=== PATIENT | male | born 1960 | race Caucasian/White ===

== ENCOUNTER → 2016-08-19 | Outpatient (CLI) | payer OTHER ==
[2016-08-19 12:08] LABS: CHLORIDE,CL 104 mmol/L (98-110); SODIUM,NA 140 mmol/L (136-146)
== END ==
LOC: MW.CHIM 11:32
PROVIDERS: ATTEND Internal Medicine
DX: E11.9 Type 2 diabetes mellitus without complications (principal)
CPT/HCPCS: 36415; 80053; 80061; 83036; 85025

== ENCOUNTER → 2016-09-02 | Outpatient (CLI) | payer OTHER ==
--- NOTE | 2016-09-02 12:31 | CR ---
EXAMINATION: Cervical spine HISTORY: Cervicalgia COMPARISON: None TECHNIQUE: AP and lateral views FINDINGS: The cervical spinal alignment appears normal. The vertebral body heights and disc spaces a ppear well-maintained. Bone mineralization is normal. Mild facet arthritic changes noted. No acute o sseous abnormality. The prevertebral soft tissues appear normal. IMPRESSION: Mild degenerative changes without acute findings.
== END ==
LOC: MW.CHIM 08:38
PROVIDERS: ATTEND Internal Medicine
DX: M54.2 Cervicalgia (principal); M47.812 Spondylosis without myelopathy or radiculopathy, cervical region
CPT/HCPCS: 72040; 72040-26

== ENCOUNTER 2017-01-11 07:51 | Day surgery (SDC) | payer OTHER ==
[~2017-01-11 07:51] MED LIST: Lactated Ringers 1,000 ML IV SCH; Lidocaine 2% 5 ML SDV ONE; Midazolam 1 MG/ML 2 ML SDV ONE; Ondansetron 4 MG/2 ML SDV ONE; Propofol 200 MG/20 ML SDV ONE; fentaNYL 100 MCG/2 ML SDV ONE
--- NOTE | 2017-01-11 08:13 | PCM.PREANE ---
Preanesthetic Assessment - Anesthesia/Transfusion/Family Hx Anesthesia History: Prior Anesthesia Without Reaction Family History of Anesthesia Reaction: No Transfusion History: No Prior Transfusion(s) - Review of Systems General: No Symptoms Pulmonary: No Symptoms Cardiovascular: No Symptoms Gastrointestinal: No Symptoms Neurological: No Symptoms Other: Reports: None - Physical Assessment NPO Status Date: 01/10/17 O2 Sat by Pulse Oximetry: 97 Respiratory Rate: 16 Vital Signs: Last Vital Signs Temp 36.4 C 01/11/17 08:08 Pulse 49 L 01/11/17 08:08 Resp 16 01/11/17 08:08 BP 151/97 H 01/11/17 08:08 Pulse Ox 97 01/11/17 08:08 Height: 1.98 m Weight: 135.171 kg ASA Class: 2 Mental Status: Alert & Oriented x3 Airway Class: Mallampati = 2 Dentition: Reports: Normal Dentition ROM/Head Extension: Full Lungs: Clear to Auscultation, Normal Respiratory Effort Cardiovascular: Regular Rate, Regular Rhythm - Allergies Allergies/Adverse Reactions: Allergies Allergy/AdvReac Type Severity Reaction Status Date / Time No Known Allergies Allergy Verified 01/06/17 13:58 - Anesthesia Plan Pre-Op Medication Ordered: None (PMH: raúl, gerd, dm2, hld) - Acknowledgements Anesthesia Type Planned: MAC Pt an Appropriate Candidate for the Planned Anesthesia: Yes Alternatives and Risks of Anesthesia Discussed w Pt/Guardian: Yes Pt/Guardian Understands and Agrees with Anesthesia Plan: Yes PreAnesthesia Questionnaire Other HEENT History: wears glasses Cardiovascular History: Reports: High Cholesterol, Hypertension, Other (See Below) Other Cardiovascular History: hx of "palpitations" Respiratory History: Reports: Sleep Apnea Other Respiratory History: uses CPAP Gastrointestinal History: Reports: Colon Polyp, Diverticulosis, GERD, Hemorrhoids, Hiatal Hernia Other Gastrointestinal History: hx of "stomach mass" Musculoskeletal History: Reports: None Endocrine/Metabolic History: Reports: Obesity/BMI 30+ - Past Surgical History Head Surgeries/Procedures: Reports: None Cardiovascular Surgical History: Reports: Other (See Below) Other Cardiovascular Surgeries/Procedures: "numerous" angiograms, all negative GI Surgical History: Reports: Cholecystectomy, Colonoscopy, EGD Musculoskeletal Surgical History: Reports: Other (See Below) Other Musculoskeletal Surgeries/Procedures:: hx of elbow "repair", has 1 screw in right elbow - SUBSTANCE USE Smoking Status *Q: Former Smoker Recreational Drug Use History: No - HOME MEDS Home Medications: Home Meds Aspirin [[place] Aspirin] 81 mg PO DAILY 01/06/17 [History] Canagliflozin [Invokana] 300 mg PO ACBREAKFAST 01/06/17 [History] Esomeprazole Magnesium 40 mg PO DAILY 01/06/17 [History] Lisinopril/Hydrochlorothiazide [Lisinopril-Hctz 20-12.5 mg Tab] 1 tab PO DAILY 01/06/17 [History] Metoprolol Tartrate 100 mg PO BID 01/06/17 [History] NIFEdipine [Procardia Xl] 90 mg PO DAILY 01/06/17 [History] Pravastatin [Pravachol] 20 mg PO DAILY 01/06/17 [History] metFORMIN HCl [Metformin HCl] 3 tab PO QPM 01/06/17 [History] - CURRENT (IN HOUSE) MEDS Current Meds: Current Medications Lactated Ringer's (Ringers, Lactated) 1,000 mls @ 125 mls/hr IV ASDIRECTED ZAN Last Admin: 01/11/17 08:09 Dose: 125 mls/hr Discontinued Medications Fentanyl (Sublimaze) Confirm Administered Dose 100 mcg .ROUTE .STK-MED ONE Stop: 01/11/17 07:41 Lidocaine (Xylocaine-Mpf 2%) Confirm Administered Dose 5 ml .ROUTE .STK-MED ONE Stop: 01/11/17 07:40 Midazolam HCl (Versed 1 Mg/Ml) Confirm Administered Dose 2 mg .ROUTE .STK-MED ONE Stop: 01/11/17 07:41 Ondansetron HCl (Zofran) Confirm Administered Dose 4 mg .ROUTE .STK-MED ONE Stop: 01/11/17 07:40 Propofol (Diprivan 20 Ml) Confirm Administered Dose 400 mg .ROUTE .STK-MED ONE Stop: 01/11/17 07:41
--- NOTE | 2017-01-11 09:10 | PCM.OPNOTE ---
- General Post-Op/Procedure Note Date of Surgery/Procedure: 01/11/17 Operative Procedure(s): egd w bx. and colonoscopy w bx Findings: see dict [id number] Pre Op Diagnosis: gerd and surveillence colonoscopy Post-Op Diagnosis: gastric polyp, colon polyp and diverticulosis Anesthesia Technique: Moderate Sedation Primary Surgeon: Michael Novoa Pathology: egd bx and stomach polyp colon polyp at 55 cm when scope withdrew, cold bx Complications: None Condition: Good
--- NOTE | 2017-01-11 09:18 | PCM.POSTAN ---
POST ANESTHESIA ASSESSMENT - MENTAL STATUS Mental Status: Alert, Oriented - RESPIRATORY Respiratory Status: Respiratory Rate WNL, Airway Patent, O2 Saturation Stable - CARDIOVASCULAR CV Status: Pulse Rate WNL, Blood Pressure Stable - GASTROINTESTINAL GI Status: No Symptoms - POST OP HYDRATION Hydration Status: Adequate & Stable
--- NOTE | 2017-01-11 09:18 | PCM48HPAN ---
Post Anesthesia Note - EVALUATION WITHIN 48HRS OF ANESTHETIC Vital Signs in Normal Range: Yes Patient Participated in Evaluation: Yes Respiratory Function Stable: Yes Airway Patent: Yes Cardiovascular Function Stable: Yes Hydration Status Stable: Yes Pain Control Satisfactory: Yes Nausea and Vomiting Control Satisfactory: Yes Mental Status Recovered: Yes
[2017-01-11 09:30] VITALS: BP 122/81
--- NOTE | 2017-01-11 10:49 | OR ---
SURGEON: Michael Novoa MD DATE OF PROCEDURE: 01/11/2017 PREOPERATIVE DIAGNOSIS: Acid reflux and a history of colon polyp. PROCEDURE PERFORMED: Esophagogastroduodenoscopy with biopsy and colonoscopy with biopsy. EGD FINDINGS: 1. The patient is easily sedated with SLIP FILLER and Diprivan. The patient is soundly snoring. 2. Oropharynx and proximal esophagus are free of disease and no stricture or inflammation. Distal esophagus at GE junction at 40, shows almost no acid reflux. Very mild salmon color change, suggests very mild acid reflux. Stomach rugae is normal in appearance and there is a little bit of bile stained water, and otherwise no blood or food particle. Antrum is a little bit inflamed and there are 2 tiny polyps about a size of 1-2 mm at the antrum right at the entrance of the duodenal polyp. It was biopsied. Duodenum was grossly normal in appearance. No blood, no ulcer, no inflammation. Scope retrieved back to the stomach. Retroflexed look at the fundus of stomach and there is no hiatal hernia. Biopsy done at antrum and body and GE junction at 40, and we already biopsied the polyp and sucked out the air while scope pulling out. PROCEDURE IN DETAIL: The patient was taken to the endoscopy room, and with the SLIP FILLER, Diprivan was administered. A well-lubricated EGD scope was gently inserted through the oropharynx, down the esophagus, passing through the gastroesophageal junction, into the stomach. The mucosa was examined upon the passage. Any etiology will be noted. Once in the stomach, we continued to advance to the distal antrum, passed through the pylorus into the second portion of the duodenum. Again, the mucosa was examined for any abnormality and etiology. The scope was then retrieved back to the stomach and then retroflexed to look at the fundus of the stomach. If a biopsy was indicated, we will biopsy the antrum, body, and gastroesophageal junction. The air will be sucked out while the scope is retrieved to reduce the patient's discomfort. The patient tolerated the procedure well. There were no intraoperative complications. Dr. Novoa was present through the whole procedure. Prior to surgery, a time-out had been called, the patient identified, procedure identified and antibiotic administered. COLONOSCOPY FINDINGS: 1. The patient is easily sedated with SLIP FILLER and Diprivan. The patient is soundly snoring. 2. Bowel prep was average to good with very little liquid stool. No semi- formed stool. 3. The patient's colon was rather straight forward. Cecum indicated by ileocecal fold, one-to-one indentation, and appendiceal orifice. Light immittance is not observed and mucosa examined. Upon scope pulling out, the patient had one tiny polyp around 4-5 mm at the distance of 55 when the scope pulling out. It was removed with cold biopsy forceps. The patient also has moderate to large amount of diverticulosis at the left colon. No signs or symptoms of diverticulitis. There is a lot of diverticula and they are not big, suggest early stage and there is a pretty prominent venous prominence and question about portal hypertension especially in the rectum, and the patient has mild internal hemorrhoids and no external hemorrhoids. The patient would benefit from a repeat colonoscopy in 3 years from now or 5 years from now depends on the polyp pathology and/or clinically indicated otherwise. PROCEDURE IN DETAIL: The patient was taken to the endoscopy room. A time out was called, patient identified, and procedure identified. Diprivan was then administrated. Patient went from awake to sleep, hearing doctor talking or door closing is normal. Perineum inspection and digital examination were then performed. A well- lubricated colonoscope was gently inserted through the rectum, advanced past the rectosigmoid junction, the descending colon, splenic flexure, transverse colon, hepatic flexure, ascending colon, arrived to the cecum. Cecum was identified as dictated in the finding. Then the scope was carefully withdrawn while attention was paid to the mucosal surface for any abnormality. Air will be sucked out during the scope withdrawal. At the rectum, retroflexed to examine any rectal diseases, fistula or hemorrhoids. During mucosal examination, polyp was noted; picture taken and biopsy performed. Patient tolerated procedure well. There were no intraoperative complications, and Dr. Novoa was present throughout the whole procedure. As always, thank you for the kind referral. JEAN PIERRE / [place] /[id number] MARY
== END 2017-01-11 09:30 | disposition home or self-care (01) ==
LOC: MW.SDS 07:51
PROVIDERS: ATTEND Surgery
DX: Z12.11 Encounter for screening for malignant neoplasm of colon (principal); D12.6 Benign neoplasm of colon, unspecified; K20.9 Esophagitis, unspecified; K31.7 Polyp of stomach and duodenum; K29.50 Unspecified chronic gastritis without bleeding; K57.30 Diverticulosis of large intestine without perforation or abscess without bleeding; K64.8 Other hemorrhoids; Z86.010 Personal history of colon polyps; I10 Essential (primary) hypertension; E11.9 Type 2 diabetes mellitus without complications; E78.5 Hyperlipidemia, unspecified; K21.9 Gastro-esophageal reflux disease without esophagitis; Z79.82 Long term (current) use of aspirin; Z79.84 Long term (current) use of oral hypoglycemic drugs; Z79.899 Other long term (current) drug therapy; Z90.49 Acquired absence of other specified parts of digestive tract; Z98.890 Other specified postprocedural states; Z78.9 Other specified health status
CPT/HCPCS: 43239; 45380; 82962; J2250; J2405; J3010; J7120; 00740; 88305; 88312; J2704

== ENCOUNTER 2019-09-12 06:34 | Day surgery (SDC) | payer OTHER ==
[~2019-09-12 06:34] MED LIST changes: -Lidocaine 2% 5 ML SDV ONE; -Midazolam 1 MG/ML 2 ML SDV ONE; -Ondansetron 4 MG/2 ML SDV ONE; -Propofol 200 MG/20 ML SDV ONE; -fentaNYL 100 MCG/2 ML SDV ONE
--- NOTE | 2019-09-12 07:29 | PCM.PREANE ---
Preanesthetic Assessment - Anesthesia/Transfusion/Family Hx Anesthesia History: Prior Anesthesia Without Reaction Family History of Anesthesia Reaction: No Transfusion History: No Prior Transfusion(s) Intubation History: Unknown - Review of Systems General: No Symptoms Pulmonary: No Symptoms Cardiovascular: No Symptoms Gastrointestinal: Other (h/o gastric ulcer, hiatal hernia) Neurological: No Symptoms Other: Reports: None - Physical Assessment Height: 6 ft 6 in Weight: 130.635 kg ASA Class: 3 Mental Status: Alert & Oriented x3 Airway Class: Mallampati = 2 Dentition: Reports: Normal Dentition, Partial (upper (removed)) Thyro-Mental Finger Breadths: 3 Mouth Opening Finger Breadths: 3 ROM/Head Extension: Full Lungs: Clear to Auscultation, Normal Respiratory Effort Cardiovascular: Regular Rate, Regular Rhythm - Allergies Allergies/Adverse Reactions: Allergies Allergy/AdvReac Type Severity Reaction Status Date / Time No Known Allergies Allergy Verified 09/10/19 09:15 - Blood Blood Available: No - Anesthesia Plan Pre-Op Medication Ordered: None - Acknowledgements Anesthesia Type Planned: MAC Pt an Appropriate Candidate for the Planned Anesthesia: Yes Alternatives and Risks of Anesthesia Discussed w Pt/Guardian: Yes Pt/Guardian Understands and Agrees with Anesthesia Plan: Yes PreAnesthesia Questionnaire HEENT History: Reports: Other (See Below) Other HEENT History: wears glasses, top partial Cardiovascular History: Reports: Arrhythmia (daily palpitations (PV's,NSVT and paroxysmal SVT). Denies dezziness, passing out or chest pain.stress test 2 weeks ago was ok. He had multiple cardiac caths and ECHO stress test- was told no blackage), High Cholesterol, Hypertension, Other (See Below) Other Cardiovascular History: hx NSVT Respiratory History: Reports: Sleep Apnea Other Respiratory History: uses CPAP Gastrointestinal History: Reports: Colon Polyp, Diverticulosis, GERD, Hemorrhoids, Hiatal Hernia Genitourinary History: Reports: None Musculoskeletal History: Reports: None Neurological History: Reports: None Psychiatric History: Reports: None Endocrine/Metabolic History: Reports: Diabetes, Type II, Obesity/BMI 30+ (BMI 33.3) Hematologic History: Reports: None Immunologic History: Reports: None Oncologic (Cancer) History: Reports: None Dermatologic History: Reports: None - Past Surgical History Head Surgeries/Procedures: Reports: None HEENT Surgical History: Reports: None Cardiovascular Surgical History: Reports: Other (See Below) Other Cardiovascular Surgeries/Procedures: "numerous" angiograms, all negative Respiratory Surgical History: Reports: None GI Surgical History: Reports: Cholecystectomy, Colonoscopy, EGD Endocrine Surgical History: Reports: None Neurological Surgical History: Reports: None Musculoskeletal Surgical History: Reports: Other (See Below) Other Musculoskeletal Surgeries/Procedures:: hx of elbow "repair", has 1 screw in right elbow Oncologic Surgical History: Reports: None Dermatological Surgical History: Reports: None - SUBSTANCE USE Smoking Status *Q: Former Smoker Tobacco Use Within Last Twelve Months: No - HOME MEDS Home Medications: Home Meds Aspirin [[place] Aspirin EC] 81 mg PO DAILY 01/06/17 [History] Canagliflozin [Invokana] 300 mg PO ACBREAKFAST 01/06/17 [History] Esomeprazole Magnesium 40 mg PO DAILY 01/06/17 [History] Lisinopril/Hydrochlorothiazide [Lisinopril-Hctz 20-12.5 mg Tab] 1 tab PO DAILY 01/06/17 [History] Metoprolol Tartrate 100 mg PO BID 01/06/17 [History] Pravastatin [Pravachol] 20 mg PO DAILY 01/06/17 [History] metFORMIN HCl [Metformin HCl] 3 tab PO QPM 01/06/17 [History] Sildenafil [Viagra] 50 mg PO ASDIRECTED PRN 09/10/19 [History] dilTIAZem HCL [Dilt-Xr] 180 mg PO DAILY 09/10/19 [History] - CURRENT (IN HOUSE) MEDS Current Meds: Current Medications Lactated Ringer's (Ringers, Lactated) 1,000 mls @ 125 mls/hr IV ASDIRECTED [facility]
[2019-09-12] MEDS ORDERED: Ondansetron 4 MG/2 ML SDV ONE (07:37)
[2019-09-12] MEDS ORDERED: Propofol 200 MG/20 ML SDV ONE (07:38)
[2019-09-12] MEDS ORDERED: fentaNYL 100 MCG/2 ML SDV ONE (07:38)
[2019-09-12] MEDS ORDERED: Lidocaine 2% 5 ML SDV ONE (07:38)
[2019-09-12] MEDS ORDERED: Midazolam 1 MG/ML 2 ML SDV ONE (07:39)
--- NOTE | 2019-09-12 08:23 | PCM.OPNOTE ---
- General Post-Op/Procedure Note Date of Surgery/Procedure: 09/12/19 Operative Procedure(s): egd w bx Findings: see [id number] Pre Op Diagnosis: gastric muscosa intestinal metaplasia Post-Op Diagnosis: Same Anesthesia Technique: Moderate Sedation Primary Surgeon: Michael Novoa Pathology: egd bx Complications: None Condition: Good
--- NOTE | 2019-09-12 08:28 | PCM.POSTAN ---
POST ANESTHESIA ASSESSMENT - MENTAL STATUS Mental Status: Alert - VITAL SIGNS Vital Signs: Last Vital Signs Temp 36.6 C 09/12/19 08:17 Pulse 55 L 09/12/19 08:22 Resp 11 L 09/12/19 08:22 BP 123/86 09/12/19 08:22 Pulse Ox 95 09/12/19 08:22 - RESPIRATORY Respiratory Status: Respiratory Rate WNL - CARDIOVASCULAR CV Status: Pulse Rate WNL Free Text/Narrative:: Appears junctional rhythm. Stable. - GASTROINTESTINAL GI Status: No Symptoms - PAIN Pain Score: 0 - POST OP HYDRATION Hydration Status: Adequate & Stable - OBSERVATIONS Free Text/Narrative:: Doing well. To DS.
--- NOTE | 2019-09-12 08:57 | PCM48HPAN ---
Post Anesthesia Note - EVALUATION WITHIN 48HRS OF ANESTHETIC Vital Signs in Normal Range: Yes Patient Participated in Evaluation: Yes Respiratory Function Stable: Yes Airway Patent: Yes Cardiovascular Function Stable: Yes Hydration Status Stable: Yes Pain Control Satisfactory: Yes Nausea and Vomiting Control Satisfactory: Yes Mental Status Recovered: Yes Vital Signs: Last Vital Signs Temp 36.6 C 09/12/19 08:17 Pulse 56 L 09/12/19 08:27 Resp 13 09/12/19 08:27 BP 127/82 09/12/19 08:27 Pulse Ox 96 09/12/19 08:27 - COMMENTS/OBSERVATIONS Free Text/Narrative:: No anesthesia problems
[2019-09-12 10:34] VITALS: BP 116/74; PULSE 52
--- NOTE | 2019-09-12 16:22 | OR ---
SURGEON: Michael Novoa MD DATE OF PROCEDURE: 09/12/2019 PREOPERATIVE DIAGNOSIS: Gastric mucosa intestinal metaplasia. POSTOPERATIVE DIAGNOSIS: Gastric mucosa intestinal metaplasia. PROCEDURE PERFORMED: Esophagogastroduodenoscopy with biopsy. PRIMARY SURGEON: Michael Novoa MD COMPLICATIONS: None. DESCRIPTION OF PROCEDURE: EGD: The patient was taken to the endoscopy room, and with the INSTRUMENT MECHANICS SUPERVISOR, Diprivan was administered. A well-lubricated EGD scope was gently inserted through the oropharynx, down the esophagus, passing through the gastroesophageal junction, into the stomach. The mucosa was examined upon the passage. Any etiology will be noted. Once in the stomach, we continued to advance to the distal antrum, passed through the pylorus into the second portion of the duodenum. Again, the mucosa was examined for any abnormality and etiology. The scope was then retrieved back to the stomach and then retroflexed to look at the fundus of the stomach. If a biopsy was indicated, we will biopsy the antrum, body, and gastroesophageal junction. The air will be sucked out while the scope is retrieved to reduce the patient's discomfort. The patient tolerated the procedure well. There were no intraoperative complications. Dr. Novoa was present through the whole procedure. Prior to surgery, a time-out had been called, the patient identified, procedure identified and antibiotic administered. FINDINGS: 1. The patient is easily sedated with INSTRUMENT MECHANICS SUPERVISOR and Diprivan, the patient is soundly snoring. 2. Oropharynx and proximal esophagus were free of disease and distal esophagus at GE junction at 50 noted for mild salmon-colored change, suggests of acid reflux. Stomach rugae is normal in appearance, and there is little bit of bile-stained water and there is some food in the stomach. Antrum is mildly inflamed, and there are 2 polyps about the size of 1 mm at the antrum entrance, which were biopsied. Duodenum was grossly normal in appearance. Retroflexed look at the fundus and stomach, there is no hiatal hernia. Biopsy done at antrum, body, and incisura and GE junction at 40 and sucked out the air while scope pulling out. The biopsy on the body has been 4 times for this intestinal change, and during the whole study, there is no blood, no ulcer, but there is some food particle. JEAN PIERRE / MODL /[id number]
== END 2019-09-12 08:58 | disposition home or self-care (01) ==
LOC: MW.SDS 06:34
PROVIDERS: ATTEND Surgery
DX: K29.50 Unspecified chronic gastritis without bleeding (principal); K31.89 Other diseases of stomach and duodenum; K21.0 Gastro-esophageal reflux disease with esophagitis; K31.7 Polyp of stomach and duodenum; B96.81 Helicobacter pylori [H. pylori] as the cause of diseases classified elsewhere; E78.5 Hyperlipidemia, unspecified; I10 Essential (primary) hypertension; E66.9 Obesity, unspecified; E78.00 Pure hypercholesterolemia, unspecified; E11.9 Type 2 diabetes mellitus without complications; Z79.82 Long term (current) use of aspirin; Z79.84 Long term (current) use of oral hypoglycemic drugs; Z79.899 Other long term (current) drug therapy; Z87.891 Personal history of nicotine dependence; Z68.33 Body mass index [BMI] 33.0-33.9, adult; Z98.890 Other specified postprocedural states
CPT/HCPCS: 43239; 82962; J2001; J2250; J2405; J2704; J3010; J7120; 00731; 88305; 88312

== ENCOUNTER 2019-12-04 09:30 | Emergency (ER) | payer OTHER ==
--- NOTE | 2019-12-04 09:38 | EDM.PDOC ---
ED HPI GENERAL MEDICAL PROBLEM - General Stated Complaint: RASH HANDS SWOLLEN Time Seen by Provider: 12/04/19 09:37 Source of Information: Reports: Patient, Old Records History Limitations: Reports: No Limitations - History of Present Illness INITIAL COMMENTS - FREE TEXT/NARRATIVE: 59-year-old male past medical history of diabetes mellitus, hyperlipidemia, hypertension presenting with a rash. Patient is on day 1 of a treatment regimen for resistant H. pylori consisting of amoxicillin, lansoprazole, and metronidazole. He took these medications this morning and then shortly thereafter developed an itchy, erythematous, macular rash to the bilateral antecubital fossae, the chest, and the back. This was accompanied by some abdominal bloating. No shortness of breath, throat swelling, facial swelling, wheezing, coughing, vomiting, or diarrhea. No known history of any medication allergies. Patient was treated previously for H. pylori in September 2019 and did take a regimen that contained amoxicillin and had no issues at that time. No self treatment prior to arrival. No other complaints. Past medical history: Reviewed, no additional pertinent history. Surgical history: Reviewed in system, no additional pertinent history. Social history: Reviewed in system, no additional pertinent history. Family history: Reviewed in system, no additional pertinent history. PHYSICAL EXAM Vital signs reviewed. Nursing notes reviewed. Constitutional: Awake, alert, non-distressed. Head: Normocephalic, atraumatic. Eyes: EOMI, conjunctiva normal, no discharge, no scleral icterus. Ears, Nose, Throat: External ears and nose normal, moist oral mucosa. Uvula midline, no intraoral swelling or lesions. Cardiovascular: 2+ radial pulse, capillary refill less than 2 seconds. Pulmonary: normal work of breathing, no accessory muscle use. CTA BL. Abdomen/GI: Soft, nontender, nondistended, no guarding or rigidity, no masses. Musculoskeletal: No deformities. Integumentary: Appropriate color for ethnicity, warm, dry, no pallor or jaundice. Erythematous macular rash to the bilateral antecubital fossae, upper anterior chest, upper back. Neurologic: Alert, answering questions appropriately, normal speech, no facial droop, moving all extremities well. Psychiatric: Appropriate mood and affect, normal thought process. - Related Data Allergies Allergy/AdvReac Type Severity Reaction Status Date / Time No Known Allergies Allergy Verified 12/04/19 09:48 Home Meds: Home Meds Aspirin [[place]ravis Aspirin EC] 81 mg PO DAILY 01/06/17 [History] Canagliflozin [Invokana] 300 mg PO ACBREAKFAST 01/06/17 [History] Esomeprazole Magnesium 40 mg PO DAILY 01/06/17 [History] Lisinopril/Hydrochlorothiazide [Lisinopril-Hctz 20-12.5 mg Tab] 1 tab PO DAILY 01/06/17 [History] Metoprolol Tartrate 100 mg PO BID 01/06/17 [History] Pravastatin [Pravachol] 20 mg PO DAILY 01/06/17 [History] metFORMIN HCl [Metformin HCl] 3 tab PO QPM 01/06/17 [History] Sildenafil [Viagra] 50 mg PO ASDIRECTED PRN 09/10/19 [History] dilTIAZem HCL [Dilt-Xr] 180 mg PO DAILY 09/10/19 [History] Amoxicillin 2 cap PO BID 12/04/19 [History] Lansoprazole [Prevacid] 30 mg PO BID 12/04/19 [History] Ozempic 0.25 mg IM WEEKLY 12/04/19 [History] lisinopriL [Lisinopril] 20 mg PO DAILY 12/04/19 [History] metroNIDAZOLE [Flagyl] 1 tab PO TID 12/04/19 [History] Past Medical History HEENT History: Reports: Other (See Below) Other HEENT History: wears glasses, top partial Cardiovascular History: Reports: Arrhythmia (daily palpitations (PV's,NSVT and paroxysmal SVT). Denies dezziness, passing out or chest pain.stress test 2 weeks ago was ok. He had multiple cardiac caths and ECHO stress test- was told no blackage), High Cholesterol, Hypertension, Other (See Below) Other Cardiovascular History: hx NSVT Respiratory History: Reports: Sleep Apnea Other Respiratory History: uses CPAP Gastrointestinal History: Reports: Colon Polyp, Diverticulosis, GERD, Hemorrhoids, Hiatal Hernia Genitourinary History: Reports: None Musculoskeletal History: Reports: None Neurological History: Reports: None Psychiatric History: Reports: None Endocrine/Metabolic History: Reports: Diabetes, Type II, Obesity/BMI 30+ (BMI 33.3) Hematologic History: Reports: None Immunologic History: Reports: None Oncologic (Cancer) History: Reports: None Dermatologic History: Reports: None - Past Surgical History Head Surgeries/Procedures: Reports: None HEENT Surgical History: Reports: None Cardiovascular Surgical History: Reports: Other (See Below) Other Cardiovascular Surgeries/Procedures: "numerous" angiograms, all negative Respiratory Surgical History: Reports: None GI Surgical History: Reports: Cholecystectomy, Colonoscopy, EGD Endocrine Surgical History: Reports: None Neurological Surgical History: Reports: None Musculoskeletal Surgical History: Reports: Other (See Below) Other Musculoskeletal Surgeries/Procedures:: hx of elbow "repair", has 1 screw in right elbow Oncologic Surgical History: Reports: None Dermatological Surgical History: Reports: None ED ROS GENERAL - Review of Systems Review Of Systems: See Below ED EXAM, SKIN/RASH Exam: See Below Course - Vital Signs Text/Narrative:: 59-year-old male presenting with a new rash. Given the timing with medication intake this morning, I am concerned this may be an allergic reaction to his H. pylori medication regimen. This consists of amoxicillin, lansoprazole, and metronidazole. Statistically, an allergy to amoxicillin would be much more likely, but he has tolerated this medication without a problem within the past 1 to 2 months. I did speak with our pharmacist to discuss the medications that he is on. She agreed that a cutaneous allergic reaction to metronidazole would be very unlikely, but not impossible. Regardless, symptoms seem quite mild at this point and we gave some oral diphenhydramine. There is no evidence of multisystem organ involvement to warrant steroids or epinephrine - does not. I did discuss potential alternative treatment strategies with her pharmacist, all of which contain metronidazole or are prohibitively expensive or not well studied. I am the best option this point is to have the patient hold the metronidazole and continue taking the amoxicillin and lansoprazole. We will see if holding the metronidazole makes his rash improve or resolve. I recommended [id number] Zyrtec or Claritin once daily in the morning along with oral Benadryl or Benadryl cream as needed. We will have him call his general surgeon's office in the next 1 to 2 days to follow-up. If the rash worsens or does not improve I suspect that it may be the amoxicillin that he is having allergic reaction to. Dr. Novoa the general surgeon can decide which alternative treatment strategy he would like to pursue at that point. Plan: Patient is stable to discharge home with outpatient general surgery clinic follow-up. Strict emergency department return precautions were provided, patient indicated understanding. All questions were answered prior to departure. Discharged in good condition. Last Recorded V/S: Last Vital Signs Temp 36.3 C 12/04/19 09:46 Pulse 69 12/04/19 09:46 Resp 18 12/04/19 09:46 BP 140/91 H 12/04/19 09:46 Pulse Ox 95 12/04/19 09:46 - Orders/Labs/Meds Meds: Medications Discontinued Medications Generic Name Dose Route Start Last Admin Trade Name Travis PRN Reason Stop Dose Admin Diphenhydramine HCl 50 mg 12/04/19 09:59 12/04/19 10:13 Benadryl PO 12/04/19 10:00 50 mg ONETIME ONE Administration Departure - Departure Time of Disposition: 10:22 Disposition: Home, Self-Care 01 Condition: Good Clinical Impression: Allergic reaction to drug Qualifiers: Encounter type: initial encounter Qualified Code(s): T78.40XA - Allergy, unspecified, initial encounter - Discharge Information Instructions: Allergies, Adult Referrals: Michael Novoa MD [Physician] - Additional Instructions: You were seen in the emergency department for a rash. I am suspicious that you are having allergic reaction to 1 of the medications that you started taking this morning. Let's stop taking your metronidazole but continue taking the amoxicillin and lansoprazole and see if your rash improves. If the rash worsens or does not improve, it may be the amoxicillin that you are allergic to. You can take Claritin or Zyrtec once daily, these are available [id number]. You can also take diphenhydramine (Benadryl) [id number] as needed for rash or itching. You can also try Benadryl cream. Please call Dr. Novoa's office in the next 1 to 2 days to advise them about your medication changes and to see if they recommend a different treatment strategy or different medications. Please return the emergency department immediately if your symptoms worsen or if you feel worse. Thank you for choosing the [facility] emergency department in [place] for your medical needs today. It was a pleasure caring for you. The following information is given to patients seen in the emergency department who are being discharged. This information is to outline your options for follow-up care. We provide all patients seen in our emergency department with a follow-up referral. The need for follow-up, as well as the timing and circumstances, are variable depending upon the specifics of your emergency department visit. If you don't have a primary care physician on staff, we will provide you with a referral. We always advise you to contact your personal physician following an emergency department visit to inform them of the circumstance of the visit and for follow-up with them and/or the need for any referrals to a consulting specialist. The emergency department will also refer you to a specialist when appropriate. This referral assures that you have the opportunity for follow-up care with a specialist. All of these measure are taken in an effort to provide you with optimal care, which includes your follow-up. Under all circumstances we always encourage you to contact your private physician who remains a resource for coordinating your care. When calling for follow-up care, please make the office aware that this follow-up is from your recent emergency room visit. If for any reason you are refused follow-up, please contact the [facility] Emergency Department at and asked to speak to the emergency department charge nurse. If you do not have a primary care physician that is caring for you, you can contact these clinics below to set up an appointment to establish care: [facility] [address] [place] [id number] [facility] [address] [place] [address] Sepsis Event Note (ED) - Focused Exam Vital Signs: Vital Signs Temp Pulse Resp BP Pulse Ox 12/04/19 09:46 36.3 C 69 18 140/91 H 95
[2019-12-04] MEDS ORDERED: diphenhydrAMINE 50 MG Cap PO ONE (09:59)
[2019-12-04 10:36] VITALS: BP 122/80; PULSE 53
== END 2019-12-04 10:37 | disposition home or self-care (01) ==
LOC: MW.ED 09:30
DX: L27.0 Generalized skin eruption due to drugs and medicaments taken internally (principal); T36.0X5A Adverse effect of penicillins, initial encounter; T37.8X5A Adverse effect of other specified systemic anti-infectives and antiparasitics, initial encounter; T47.1X5A Adverse effect of other antacids and anti-gastric-secretion drugs, initial encounter; E11.9 Type 2 diabetes mellitus without complications; E78.5 Hyperlipidemia, unspecified; I10 Essential (primary) hypertension; E78.00 Pure hypercholesterolemia, unspecified; K21.9 Gastro-esophageal reflux disease without esophagitis; E66.9 Obesity, unspecified; Z68.32 Body mass index [BMI] 32.0-32.9, adult; Z79.82 Long term (current) use of aspirin; Z79.84 Long term (current) use of oral hypoglycemic drugs; Z79.899 Other long term (current) drug therapy
CPT/HCPCS: 99283; A9270; 99282

== ENCOUNTER 2020-03-26 06:47 | Day surgery (SDC) | payer OTHER ==
[2020-03-26] MEDS ORDERED: Midazolam 1 MG/ML 2 ML SDV ONE (06:57)
[2020-03-26] MEDS ORDERED: Propofol 200 MG/20 ML SDV ONE (06:57)
[2020-03-26] MEDS ORDERED: Glycopyrrolate 0.2 MG/ML SDV ONE (06:57)
[2020-03-26] MEDS ORDERED: Lidocaine 2% 5 ML SDV ONE (06:57)
--- NOTE | 2020-03-26 07:20 | PCM.PREANE ---
Preanesthetic Assessment - Anesthesia/Transfusion/Family Hx Anesthesia History: Prior Anesthesia Without Reaction Family History of Anesthesia Reaction: No Transfusion History: No Prior Transfusion(s) Intubation History: Unknown - Review of Systems General: No Symptoms Pulmonary: No Symptoms Cardiovascular: No Symptoms Gastrointestinal: No Symptoms Neurological: No Symptoms Other: Reports: None - Physical Assessment NPO Status Date: 03/25/20 Height: 6 ft 6 in Weight: 124.738 kg ASA Class: 2 Mental Status: Alert & Oriented x3 Airway Class: Mallampati = 2 Dentition: Reports: Normal Dentition ROM/Head Extension: Full Lungs: Clear to Auscultation, Normal Respiratory Effort Cardiovascular: Regular Rate, Regular Rhythm - Allergies Allergies/Adverse Reactions: Allergies Allergy/AdvReac Type Severity Reaction Status Date / Time No Known Allergies Allergy Verified 03/21/20 10:24 - Blood Blood Available: No - Anesthesia Plan Pre-Op Medication Ordered: None - Acknowledgements Anesthesia Type Planned: General Anesthesia (tiva) Pt an Appropriate Candidate for the Planned Anesthesia: Yes Alternatives and Risks of Anesthesia Discussed w Pt/Guardian: Yes Pt/Guardian Understands and Agrees with Anesthesia Plan: Yes Additional Comments: PMH: glaucoma, HTN, DM2, PSVT, NSVT PLAN: tiva PreAnesthesia Questionnaire HEENT History: Reports: Other (See Below) Other HEENT History: wears glasses, top partial Cardiovascular History: Reports: Arrhythmia, High Cholesterol, Hypertension, Other (See Below) Other Cardiovascular History: hx NSVT Respiratory History: Reports: Sleep Apnea Other Respiratory History: uses CPAP Gastrointestinal History: Reports: Colon Polyp, Diverticulosis, GERD, Hemorrhoids, Hiatal Hernia Genitourinary History: Reports: None Musculoskeletal History: Reports: None Neurological History: Reports: None Psychiatric History: Reports: None Endocrine/Metabolic History: Reports: Diabetes, Type II, Obesity/BMI 30+ Hematologic History: Reports: None Immunologic History: Reports: None Oncologic (Cancer) History: Reports: None Dermatologic History: Reports: None - Infectious Disease History Infectious Disease History: Reports: Other (See Below) Other Infectious Disease History: COVID positive 01/29/20 - Past Surgical History Head Surgeries/Procedures: Reports: None HEENT Surgical History: Reports: None Cardiovascular Surgical History: Reports: Other (See Below) Other Cardiovascular Surgeries/Procedures: "numerous" angiograms, all negative Respiratory Surgical History: Reports: None GI Surgical History: Reports: Cholecystectomy, Colonoscopy, EGD Male Surgical History: Reports: None Endocrine Surgical History: Reports: None Neurological Surgical History: Reports: None Musculoskeletal Surgical History: Reports: Other (See Below) Other Musculoskeletal Surgeries/Procedures:: hx of elbow "repair", has 1 screw in right elbow Oncologic Surgical History: Reports: None Dermatological Surgical History: Reports: None - SUBSTANCE USE Tobacco Use Status *Q: Former Tobacco User Tobacco Use Within Last Twelve Months: No - HOME MEDS Home Medications: Home Meds Aspirin [[place] Aspirin EC] 81 mg PO DAILY 01/06/17 [History] Lisinopril/Hydrochlorothiazide [Lisinopril-Hctz 20-12.5 mg Tab] 1 tab PO DAILY 01/06/17 [History] Metoprolol Tartrate 100 mg PO BID 01/06/17 [History] Pravastatin [Pravachol] 20 mg PO DAILY 01/06/17 [History] metFORMIN HCl [Metformin HCl] 3 tab PO QPM 01/06/17 [History] Sildenafil [Viagra] 50 mg PO ASDIRECTED PRN 09/10/19 [History] dilTIAZem HCL [Dilt-Xr] 180 mg PO BEDTIME 09/10/19 [History] Ozempic 0.25 mg IM WEEKLY 12/04/19 [History] Empagliflozin [Jardiance] 25 mg PO DAILY 03/21/20 [History] Esomeprazole Magnesium [Nexium] 40 mg PO DAILY 03/21/20 [History] lisinopriL [Lisinopril] 20 mg PO BEDTIME 03/21/20 [History] - CURRENT (IN HOUSE) MEDS Current Meds: Current Medications Lactated Ringer's (Ringers, Lactated) 1,000 mls @ 125 mls/hr IV ASDIRECTED ZAN Discontinued Medications Glycopyrrolate (Robinul) Confirm Administered Dose 0.2 mg .ROUTE .STK-MED ONE Stop: 03/26/20 06:58 Lidocaine (Xylocaine-Mpf 2%) Confirm Administered Dose 5 ml .ROUTE .STK-MED ONE Stop: 03/26/20 06:58 Midazolam HCl (Versed 1 Mg/Ml) Confirm Administered Dose 2 mg .ROUTE .STK-MED ONE Stop: 03/26/20 06:58 Propofol (Diprivan 20 Ml) Confirm Administered Dose 600 mg .ROUTE .STK-MED ONE Stop: 03/26/20 06:58
--- NOTE | 2020-03-26 08:38 | PCM.OPNOTE ---
- General Post-Op/Procedure Note Date of Surgery/Procedure: 03/26/20 Operative Procedure(s): egd w bx. colonoscopy w snare Findings: see [id number] Pre Op Diagnosis: fam hx of colon dz, previous polyp and h pylori Post-Op Diagnosis: Same Anesthesia Technique: Moderate Sedation Primary Surgeon: Michael Novoa Pathology: egd bx 5mm at 60cm when scope went in, and 2 mm at 80cm when scope went in Complications: None Condition: Good Free Text/Narrative:: Intake & Output 03/25/20 03/26/20 03/26/20 22:59 06:59 14:59 Intake Total 800 Balance 800
[2020-03-26 09:25] VITALS: BP 133/83; PULSE 49
--- NOTE | 2020-03-26 10:55 | OR ---
SURGEON: Michael Novoa MD DATE OF PROCEDURE: 03/26/2020 PREOPERATIVE DIAGNOSIS: Positive family history of colon disease and previous history of colon polyp and H. pylori infection in the past. PROCEDURE PERFORMED: 1. EGD with biopsy. 2. Colonoscopy with snare polypectomy. DESCRIPTION OF PROCEDURE: EGD: The patient was taken to the endoscopy room, and with the MEDICAL SCIENCE LIAISON, Diprivan was administered. A well-lubricated EGD scope was gently inserted through the oropharynx, down the esophagus, passing through the gastroesophageal junction, into the stomach. The mucosa was examined upon the passage. Any etiology will be noted. Once in the stomach, we continued to advance to the distal antrum, passed through the pylorus into the second portion of the duodenum. Again, the mucosa was examined for any abnormality and etiology. The scope was then retrieved back to the stomach and then retroflexed to look at the fundus of the stomach. If a biopsy was indicated, we will biopsy the antrum, body, and gastroesophageal junction. The air will be sucked out while the scope is retrieved to reduce the patient's discomfort. The patient tolerated the procedure well. There were no intraoperative complications. Dr. Novoa was present through the whole procedure. Prior to surgery, a time-out had been called, the patient identified, procedure identified and antibiotic administered. Colonoscopy: The patient was taken to the endoscopy room. A time out was called, patient identified, and procedure identified. Diprivan was then administrated. Patient went from awake to sleep, hearing doctor talking or door closing is normal. Perineum inspection and digital examination were then performed. A well- lubricated colonoscope was gently inserted through the rectum, advanced past the rectosigmoid junction, the descending colon, splenic flexure, transverse colon, hepatic flexure, ascending colon, arrived to the cecum. Cecum was identified as dictated in the finding. Then the scope was carefully withdrawn while attention was paid to the mucosal surface for any abnormality. Air will be sucked out during the scope withdrawal. At the rectum, retroflexed to examine any rectal diseases, fistula or hemorrhoids. During mucosal examination, abnormality or polyp encountered. Using snare equipment, the abnormality or the polyp was then snared off using electrocautery. The Patient tolerated procedure well. There were no intraoperative complications, and Dr. Novoa was present throughout the whole procedure. EGD FINDING: Stomach polyp and GERD. 1. The patient is easily sedated with MEDICAL SCIENCE LIAISON and Diprivan. Patient is soundly snoring. 2. Oropharynx and proximal esophagus were free of disease and distal esophagus at GE junction at 50 noted for mild salmon-colored change, suggests acid reflux. Stomach rugae is normal in appearance. There is a little bit of bile-stained water and there is no food in the stomach. Antrum is mildly inflamed and there are 2 polyps just like we saw in the past 1 mm at the antrum, which was biopsied. Duodenum is grossly normal in appearance, and retroflexed look at the fundus of stomach, there is no hiatal hernia. Biopsy done at antrum, body, and at the antrum, one of the polyps, and GE junction at 40, and sucked out the air while scope pulling out. The biopsy of the body was performed. During the whole study, there is no blood, ulcer, and a little bit bile in the stomach. No food particle. COLONOSCOPY FINDINGS: Colon polyp and diverticulosis. 1. The patient is easily sedated with MEDICAL SCIENCE LIAISON and Diprivan, and the patient is soundly snoring. 2. Bowel prep was average to good, very little liquid stool, no semi-formed stool or stool balls. 3. The patient's colon was rather straightforward. Cecum indicated by ileocecal fold, one-to-one indentation, and appendiceal orifice. ScopeGuide is pointing South, and the patient has 2 polyps, one is about 5 mm at distance 60 when the scope go in and the other one is at 80 cm when the scope went in. The one at 60 is about 5 mm, the one at 80 is about 2 mm. Both were snared and captured and sent for pathology. The patient has mild diverticulosis at the left colon. No signs or symptoms of diverticulitis. No inflammation, stricture, AV malformation, bleeding ulceration, blood, none of those. No other growth, and the patient has some internal hemorrhoids, no external hemorrhoids. The patient would benefit from repeat colonoscopy in 3 years from today, all depends on the polyp with the pathology, probably in about 3 years because of the history of previous polyp and this time polyp and also positive family history. JEAN PIERRE / SD /[id number]
--- NOTE | 2020-03-26 12:11 | PCM48HPAN ---
Post Anesthesia Note - EVALUATION WITHIN 48HRS OF ANESTHETIC Vital Signs in Normal Range: Yes Patient Participated in Evaluation: Yes Respiratory Function Stable: Yes Airway Patent: Yes Cardiovascular Function Stable: Yes Hydration Status Stable: Yes Pain Control Satisfactory: Yes Nausea and Vomiting Control Satisfactory: Yes Mental Status Recovered: Yes Vital Signs: Last Vital Signs Temp 97.3 F 03/26/20 08:40 Pulse 49 L 03/26/20 09:00 Resp 15 03/26/20 09:00 BP 133/83 03/26/20 09:00 Pulse Ox 97 03/26/20 09:00
--- NOTE | 2020-03-26 12:11 | PCM.POSTAN ---
POST ANESTHESIA ASSESSMENT - MENTAL STATUS Mental Status: Alert, Oriented - VITAL SIGNS Vital Signs: Last Vital Signs Temp 97.3 F 03/26/20 08:40 Pulse 49 L 03/26/20 09:00 Resp 15 03/26/20 09:00 BP 133/83 03/26/20 09:00 Pulse Ox 97 03/26/20 09:00 - RESPIRATORY Respiratory Status: Respiratory Rate WNL, Airway Patent, O2 Saturation Stable - CARDIOVASCULAR CV Status: Pulse Rate WNL, Blood Pressure Stable - GASTROINTESTINAL GI Status: No Symptoms - POST OP HYDRATION Hydration Status: Adequate & Stable
== END 2020-03-26 09:20 | disposition home or self-care (01) ==
LOC: MW.SDS 06:47
PROVIDERS: ATTEND Surgery
DX: Z12.11 Encounter for screening for malignant neoplasm of colon (principal); D12.6 Benign neoplasm of colon, unspecified; K57.30 Diverticulosis of large intestine without perforation or abscess without bleeding; K31.7 Polyp of stomach and duodenum; K29.50 Unspecified chronic gastritis without bleeding; K31.89 Other diseases of stomach and duodenum; E78.5 Hyperlipidemia, unspecified; K21.9 Gastro-esophageal reflux disease without esophagitis; I10 Essential (primary) hypertension; E78.00 Pure hypercholesterolemia, unspecified; E11.9 Type 2 diabetes mellitus without complications; Z79.899 Other long term (current) drug therapy; Z79.84 Long term (current) use of oral hypoglycemic drugs; Z98.890 Other specified postprocedural states; Z87.891 Personal history of nicotine dependence
CPT/HCPCS: 43239; 45385; 82962; J2001; J2250; J2704; J3490; 00813; 88305; 88312

== ENCOUNTER 2020-06-29 21:13 | Emergency (ER) | payer OTHER ==
[2020-06-29] MEDS ORDERED: Oxymetazoline 0.05% Nasal Spray 15 ML Bottle NAS ONE (21:52)
[2020-06-29 22:48] VITALS: PULSE 60
--- NOTE | 2020-06-29 23:43 | EDM.PDOC ---
ED HPI GENERAL MEDICAL PROBLEM - General Chief Complaint: ENT Problem Stated Complaint: NOSE BLEED FOR 2 HOURS Time Seen by Provider: 06/29/20 21:48 - History of Present Illness INITIAL COMMENTS - FREE TEXT/NARRATIVE: CHIEF COMPLAINT(S): Bloody nose HISTORY OF PRESENT ILLNESS: This is a 60-year-old man with a past medical history of hypertension and diabetes mellitus who comes to the emergency department with a chief complaint of bloody nose. The patient states that he had a bloody nose earlier in the day that stopped after approximately 1 hour. He states that it did recur approximately 45 minutes ago and is not stopping. He denies any history of epistaxis and does not take any blood thinners. He states that he did try using pressure but that did not seem to help. He states that he feels that there is some blood in the back of his throat. He denies any injury to his nose denies any fevers, blurry vision, diplopia or headache. He denies any pain REVIEW OF SYSTEMS: Constitutional: Denies fever, chills. Eyes: Denies eye pain Ears, Nose, Mouth, & Throat: Positive for epistaxis. Denies earache, sore throat Cardiovascular: Denies chest pain Respiratory: Denies shortness of breath Gastrointestinal: Denies Nausea, vomiting, diarrhea, hematochezia. Genitourinary: Denies hematuria Skin:Denies a rash MSK: Denies joint pain Neurological: Denies blurred vision, diplopia, numbness, tingling, weakness Psychiatric: Denies depression PAST MEDICAL HISTORY: As per history of present illness and as reviewed below otherwise noncontributory. SURGICAL HISTORY: As per history of present illness and as reviewed below otherwise noncontributory. SOCIAL HISTORY: As per history of present illness and as reviewed below otherwise noncontributory. FAMILY HISTORY: As per history of present illness and as reviewed below otherwise noncontributory. EXAMINATION OF ORGAN SYSTEMS/BODY AREAS: Constitutional: Blood pressure is 157/94, heart rate 74, respiratory rate 16 with an oxygen saturation 95% on room air. Temperature 36.4 General: Overall well-appearing man who is in no acute distress Psychiatric: Appropriate mood and affect. Eyes: No scleral icterus or conjunctival erythema ENMT: Moist mucous membranes. No pharyngeal erythema there is no active bleeding in the posterior pharynx. There appears to be active bleeding in the right nostril however there is some dried blood in the left nostril. No septal erosion. Cardiovascular: Regular, rate, and rhythm. No gallops, murmurs, or rubs. Bilateral upper extremity pulses symmetric and intact. No peripheral edema. No JVD. Respiratory: Lungs clear to auscultation bilaterally. No wheezes, rales, or rhonchi. Neurological: Alert, GCS 15 MEDICAL DECISION MAKING AND COURSE IN THE ED WITH INTERPRETATION/REVIEW OF DIAGNOSTIC STUDIES: This is a 60-year-old man with a past medical history of hypertension who comes to the emergency department with epistaxis that has been going on for approximately 1 hour. At this time this does appear to be a anterior bleed. Therefore at this time we will have the patient blow his nose and provide him with 2 Afrin sprays and then utilize pressure and reevaluate. I do not believe any labs or imaging are indicated. After Afrin usage and pressure there was no evidence of posterior pharyngeal bleeding, anterior bleeding. The epistaxis had stopped. I did discuss with the patient precautions and strict return instructions. He was amenable to discharge at this time and had no further questions DISPOSITION: The patient was discharged home in stable condition. The patient will follow up with primary care physician as needed CONDITION: Fair PROCEDURES: None FINAL IMPRESSION(S)/DIAGNOSES: 1. Acute anterior epistaxis Jesus Greene M.D. - Related Data Allergies Allergy/AdvReac Type Severity Reaction Status Date / Time No Known Allergies Allergy Verified 06/29/20 21:34 Home Meds: Home Meds Aspirin [Meigs Aspirin EC] 81 mg PO DAILY 01/06/17 [History] Lisinopril/Hydrochlorothiazide [Lisinopril-Hctz 20-12.5 mg Tab] 1 tab PO DAILY 01/06/17 [History] Metoprolol Tartrate 100 mg PO BID 01/06/17 [History] Pravastatin [Pravachol] 20 mg PO DAILY 01/06/17 [History] metFORMIN HCl [Metformin HCl] 3 tab PO QPM 01/06/17 [History] Sildenafil [Viagra] 50 mg PO ASDIRECTED PRN 09/10/19 [History] dilTIAZem HCL [Dilt-Xr] 180 mg PO BEDTIME 09/10/19 [History] Ozempic 0.25 mg IM WEEKLY 12/04/19 [History] Empagliflozin [Jardiance] 25 mg PO DAILY 03/21/20 [History] Esomeprazole Magnesium [Nexium] 40 mg PO DAILY 03/21/20 [History] lisinopriL [Lisinopril] 20 mg PO BEDTIME 03/21/20 [History] Past Medical History HEENT History: Reports: Other (See Below) Other HEENT History: wears glasses, top partial Cardiovascular History: Reports: Arrhythmia, High Cholesterol, Hypertension, Other (See Below) Other Cardiovascular History: hx NSVT Respiratory History: Reports: Sleep Apnea Other Respiratory History: uses CPAP Gastrointestinal History: Reports: Colon Polyp, Diverticulosis, GERD, Hemorrhoids, Hiatal Hernia Genitourinary History: Reports: None Musculoskeletal History: Reports: None Neurological History: Reports: None Psychiatric History: Reports: None Endocrine/Metabolic History: Reports: Diabetes, Type II, Obesity/BMI 30+ Hematologic History: Reports: None Immunologic History: Reports: None Oncologic (Cancer) History: Reports: None Dermatologic History: Reports: None - Infectious Disease History Infectious Disease History: Reports: Other (See Below) Other Infectious Disease History: COVID positive 01/29/20 - Past Surgical History Head Surgeries/Procedures: Reports: None HEENT Surgical History: Reports: None Cardiovascular Surgical History: Reports: Other (See Below) Other Cardiovascular Surgeries/Procedures: "numerous" angiograms, all negative Respiratory Surgical History: Reports: None GI Surgical History: Reports: Cholecystectomy, Colonoscopy, EGD Male Surgical History: Reports: None Endocrine Surgical History: Reports: None Neurological Surgical History: Reports: None Musculoskeletal Surgical History: Reports: Other (See Below) Other Musculoskeletal Surgeries/Procedures:: hx of elbow "repair", has 1 screw in right elbow Oncologic Surgical History: Reports: None Dermatological Surgical History: Reports: None Social & Family History - Family History Family Medical History: No Pertinent Family History - Caffeine Use Caffeine Use: Reports: None - Recreational Drug Use Recreational Drug Use: No ED ROS ENT - Review of Systems Review Of Systems: See Below ED EXAM, ENT - Physical Exam Exam: See Below Course - Vital Signs Last Recorded V/S: Last Vital Signs Temp 36.2 C 06/29/20 23:57 Pulse 60 06/29/20 23:57 Resp 18 06/29/20 23:57 BP 120/75 03/07/21 23:57 Pulse Ox 97 06/29/20 23:57 - Orders/Labs/Meds Meds: Medications Discontinued Medications Generic Name Dose Route Start Last Admin Trade Name Travis PRN Reason Stop Dose Admin Oxymetazoline HCl 2 ml 06/29/20 21:52 06/29/20 22:03 Afrin Original 0.05% Nasal Franklin BECKY 06/29/20 21:53 2 ml ONETIME ONE Administration Departure - Departure Time of Disposition: 23:43 Disposition: Home, Self-Care 01 Condition: Fair Clinical Impression: Epistaxis - Discharge Information *PRESCRIPTION DRUG MONITORING PROGRAM REVIEWED*: No *COPY OF PRESCRIPTION DRUG MONITORING REPORT IN PATIENT ALEXY: No Instructions: Nosebleed, [id number] Referrals: Marciano Rodriguez MD [Primary Care Provider] - Forms: ED Department Discharge Additional Instructions: You evaluate today on an emergent basis. At this time your bloody nose did stop. I do recommend the use of Walker Franklin nasal spray as we discussed. I do recommend a humidifier at home. If your bloody nose starts to happen again please apply pressure for approximately 15 minutes without removing the pressure. If it continues to bleed please return to the emergency department. Please follow-up with your primary care physician within 1 week. [facility] - Primary Care [address] [place] [address] [address] The patient is informed of any results of their evaluation and diagnostic workup and all questions are answered. They are given discharge instructions and return precautions. The patient is stable for discharge. The patient states they understand and agree with the plan and that they will return if their symptoms get worse or if they have any new concerns. The following information is given to patients seen in the emergency department who are being discharged to home. This information is to outline your options for follow-up care. We provide all patients seen in our emergency department with a follow-up referral. The need for follow-up, as well as the timing and circumstances, are variable depending upon the specifics of your emergency department visit. If you don't have a primary care physician on staff, we will provide you with a referral. We always advise you to contact your personal physician following an emergency department visit to inform them of the circumstance of the visit and for follow-up with them and/or the need for any referrals to a consulting specialist. The emergency department will also refer you to a specialist when appropriate. This referral assures that you have the opportunity for follow-up care with a specialist. All of these measure are taken in an effort to provide you with optimal care, which includes your follow-up. Under all circumstances we always encourage you to contact your private physician who remains a resource for coordinating your care. When calling for follow-up care, please make the office aware that this follow-up is from your recent emergency room visit. If for any reason you are refused follow-up, please contact the [facility] Emergency Department at and asked to speak to the emergency department charge nurse. Sepsis Event Note (ED) - Evaluation Sepsis Screening Result: No Definite Risk
[2020-06-29 23:57] VITALS: BP 120/75
== END 2020-06-29 23:57 | disposition home or self-care (01) ==
LOC: MW.ED 21:13
DX: R04.0 Epistaxis (principal); E78.00 Pure hypercholesterolemia, unspecified; I10 Essential (primary) hypertension; K21.9 Gastro-esophageal reflux disease without esophagitis; E11.9 Type 2 diabetes mellitus without complications; E66.9 Obesity, unspecified; Z68.32 Body mass index [BMI] 32.0-32.9, adult; Z86.16 Personal history of COVID-19; Z79.82 Long term (current) use of aspirin; Z79.84 Long term (current) use of oral hypoglycemic drugs; Z79.899 Other long term (current) drug therapy
CPT/HCPCS: 99282; 99283